=== PATIENT | male | born 1945 | race Caucasian/White ===

== ENCOUNTER → 2017-03-14 | Outpatient (CLI) | payer MEDICARE, BC ==
[~2017-03-14] MED LIST: ASPI1TAB PO; ASPI81TA85 PO; ATEN25TA PO; CIPR500S PO; COZA100T2 PO; CRES10TA32 PO; LUPR7.5I2 IM; PERC5TAB12 PO; PREV1CAP PO
--- NOTE | 2017-03-14 10:22 | REP ---
Radionuclide biliary scan and gallbladder ejection fraction: Radionuclide biliary scan: Imaging is performed of 5-minute intervals after intravenous injection of mebrofenin radiolabeled with 6.6 mCi of technetium 99m. There is common duct and gallbladder radial labeling at 10 minutes. There is hepatic washout. However, there is no biliary to bowel radial labeling during the 60 minutes of imaging. The radiotracer is sequestered in the gallbladder. Gallbladder ejection fraction: Additional imaging is performed at 2-minute intervals for 60 minutes after having the patient ingest a ounces of Ensure Enlive. There is biliary to bowel radial labeling at 3-4 minutes. The gallbladder ejection fraction is 67%. Normal ejection fraction is a value greater than 35%. Impression: There is no evidence of cystic duct obstruction. There is no evidence of common biliary duct obstruction. There is a normal gallbladder ejection fraction. Signed by Bradley Willett MD 03/14/2017 10:14 A
== END ==
LOC: M RAD 07:32
PROVIDERS: ATTEND Surgery
DX: R10.9 Unspecified abdominal pain (principal)
CPT/HCPCS: 78227; A9537; J2805

== ENCOUNTER 2018-07-10 09:43 | Day surgery (SDC) | payer MEDICARE, BC ==
[~2018-07-10] VITALS: Ht 175.3 cm; Wt 94.8 kg
[~2018-07-10 09:43] MED LIST changes: +AMLO5TAB6 PO; +PROP60TA14 PO
[2018-07-10] MEDS ORDERED: PROPOFOL 500 MG/50 ML VIAL As Ordered ONE (10:35)
[2018-07-10] MEDS ORDERED: LIDOCAINE 2% INJ 100 MG/5 ML SDV (FOR ANES.) As Ordered ONE (10:44)
[2018-07-10] MEDS ORDERED: NS 1,000 ML IV ONE (12:00)
--- NOTE | 2018-07-10 13:13 | ROOR ---
Patient Name: Bhavin Carlson Procedure Date: 07/10/2018 12:51 PM Date of : 1945 Age: 72 Room: [facility] Gender: Male Note Status: Finalized Procedure: Upper GI endoscopy Indications: Dyspepsia, Heartburn Providers: Дмитрий CARROLL MD Referring MD: CHRISTINA GRIJALVA MD Requesting Provider: Medicines: Monitored Anesthesia Care Complications: No immediate complications. Procedure: Pre-Anesthesia Assessment: - The heart rate, respiratory rate, oxygen saturations, blood pressure, adequacy of pulmonary ventilation, and response to care were monitored throughout the procedure. The Endoscope was introduced through the mouth, and advanced to the second part of duodenum. The upper GI endoscopy was accomplished without difficulty. The patient tolerated the procedure well. Findings: Small Hiatal Hernia. The esophagus was normal. The stomach was normal. The examined duodenum was normal. Impression: - Small Hiatal Hernia. - Normal esophagus. - Normal stomach. - Normal examined duodenum. - No specimens collected. Recommendation: - Observe patient's clinical course. - Follow an antireflux regimen. - Continue present medications. Дмитрий Carroll MD Дмитрий CARROLL MD 07/10/2018 1:13:33 PM This report has been signed electronically. Number of Addenda: 0 Note Initiated On: 07/10/2018 12:51 PM Estimated Blood Loss: Estimated blood loss: none.
--- NOTE | 2018-07-10 13:30 | ROOR ---
Patient Name: Bhavin Carlson Procedure Date: 07/10/2018 12:52 PM Date of : 1945 Age: 72 Room: [facility] Gender: Male Note Status: Finalized Procedure: Colonoscopy Indications: High risk colon cancer surveillance: Personal history of colonic polyps, Last colonoscopy: September 2015 Providers: Дмитрий CARROLL MD Referring MD: CHRISTINA GRIJALVA MD Requesting Provider: Medicines: Monitored Anesthesia Care Complications: No immediate complications. Procedure: Pre-Anesthesia Assessment: - The heart rate, respiratory rate, oxygen saturations, blood pressure, adequacy of pulmonary ventilation, and response to care were monitored throughout the procedure. The Colonoscope was introduced through the anus and advanced to the cecum, identified by appendiceal orifice and ileocecal valve. The colonoscopy was performed without difficulty. The patient tolerated the procedure well. The quality of the bowel preparation was good. Findings: The perianal and digital rectal examinations were normal. Three sessile polyps were found in the ascending colon and cecum. The polyps were 4 to 6 mm in size. These polyps were removed with a cold snare. Resection and retrieval were complete. Internal hemorrhoids were found during retroflexion. The hemorrhoids were moderate. The exam was otherwise without abnormality on direct and retroflexion views. Impression: - Three 4 to 6 mm polyps in the ascending colon and in the cecum, removed with a cold snare. Resected and retrieved. - Internal hemorrhoids. - The examination was otherwise normal on direct and retroflexion views. Recommendation: - Repeat colonoscopy in 5 years for surveillance. Дмитрий Carroll MD Дмитрий CARROLL MD 07/10/2018 1:29:56 PM This report has been signed electronically. Number of Addenda: 0 Note Initiated On: 07/10/2018 12:52 PM Estimated Blood Loss: Estimated blood loss: none.
[2018-07-10 13:45] VITALS: BP 132/97
== END 2018-07-10 14:03 | disposition home or self-care (01) ==
LOC: M OPP 09:43
PROVIDERS: ATTEND Internal Medicine Gastroenterology
DX: Z12.11 Encounter for screening for malignant neoplasm of colon (principal); Z86.010 Personal history of colon polyps; D12.2 Benign neoplasm of ascending colon; D12.0 Benign neoplasm of cecum; K64.8 Other hemorrhoids; R10.13 Epigastric pain; I10 Essential (primary) hypertension; Z79.82 Long term (current) use of aspirin; Z79.899 Other long term (current) drug therapy; Z95.1 Presence of aortocoronary bypass graft; Z95.5 Presence of coronary angioplasty implant and graft; Z85.46 Personal history of malignant neoplasm of prostate

== ENCOUNTER → 2019-12-24 | Outpatient (REF) | payer MEDICARE, BC ==
[~2019-12-24] MED LIST changes: +AMLO1TAB24 PO; -AMLO5TAB6 PO; -ASPI1TAB PO; +ASPI81TA26 PO; -ASPI81TA85 PO; +ASPI81TA86 PO; +CRES10TA PO; -CRES10TA32 PO
[2020-01-20 13:55] LABS: APPEARANCE, URINE CLEAR (CLEAR); BACTERIA, URINE AUTO NEGATIVE (NEGATIVE); BILIRUBIN, URINE AUTO NEGATIVE (NEGATIVE); BLOOD, URINE BLOOD NEGATIVE (NEGATIVE); COLOR, URINE YELLOW (YELLOW); GLUCOSE, URINE (UA) AUTO NEGATIVE (NEGATIVE); KETONE, URINE AUTO NEGATIVE (NEGATIVE); LEUKOCYTE ESTERASE, URINE AUTO NEGATIVE (NEGATIVE); MUCUS, URINE SMALL (NEGATIVE); NITRITE, URINE AUTO NEGATIVE (NEGATIVE); PROTEIN, URINE AUTO NEGATIVE (NEGATIVE); RBC, URINE AUTO 3 /HPF (0-3); SPECIFIC GRAVITY URINE AUTO 1.019 (1.002-1.035); SQUAMOUS EPITHELIAL CELL UR AU 0 /HPF (0-6); TRANSITIONAL EPITHELIAL AUTO <1 /HPF; UROBILINOGEN, URINE AUTO 0.2 mg/dL (0.0-2.0); WBC, URINE AUTO 0 /HPF (0-3)
== END ==
LOC: M SMT 08:05
PROVIDERS: ATTEND Nurse Practitioner Family
DX: R31.9 Hematuria, unspecified (principal)
CPT/HCPCS: 81000; 81001; G0463

== ENCOUNTER 2020-04-05 07:42 | Emergency (ER) | payer MEDICARE, BC ==
[~2020-04-05] VITALS: Ht 172.7 cm; Wt 92.2 kg
[2020-04-05] MEDS ORDERED: CILO100T PO (07:53)
[2020-04-05] MEDS ORDERED: BUSP10TA PO (07:53)
[2020-04-05] MEDS ORDERED: CLOP75TA2 PO (07:53)
[2020-04-05] MEDS ORDERED: RANO500T7 PO (07:53)
[2020-04-05 08:52] LABS: BASO % 0.3 % (0.0-1.0); EOS # 0.1 10^3/uL (0.0-0.5); EOS % 0.7 % (0.0-3.0); HEMATOCRIT 42.3 % (42.0-52.0); HEMOGLOBIN 13.1 g/dl (13.5-17.5); LYMPH # 1.9 10^3/uL (1.5-5.0); MEAN CORPUSCULAR HEMOGLOBIN 27.1 pg (27.0-33.0); MEAN CORPUSCULAR VOLUME 87.4 fl (80.0-96.0); MONO # 0.4 10^3/uL (0.0-0.8); MONO % 6.3 % (0.0-5.0); NEUTROPHILS # 4.4 10^3/uL (1.5-8.5); NEUTROPHILS % 64.6 % (36.0-66.0); PLATELET COUNT, AUTOMATED 298 10^3/uL (150-450); RED BLOOD COUNT 4.84 10^6/uL (4.30-6.10); WHITE BLOOD COUNT 6.8 10^3/uL (4.0-10.0)
--- NOTE | 2020-04-05 09:11 | REP ---
INDICATION: feeling of pressure to bladder. COMPARISON: None TECHNIQUE: Trans vesicle ultrasonography with pre and postvoid urinary bladder volume calculations. FINDINGS: There are no gross masses. The pre void urinary bladder volume calculation is 161 cc and the postvoid urinary bladder volume calculation is 0 cc. IMPRESSION: No abnormalities noted. <Electronically signed by Eliseo Blum > 04/05/20 [id number]
[2020-04-05 09:42] LABS: ALBUMIN 3.9 GM/DL (3.2-5.2); ALT/SGPT 18 U/L (12-78); BILIRUBIN,DIRECT < 0.1 MG/DL (0.0-0.2); BILIRUBIN,TOTAL 0.5 MG/DL (0.2-1.0); BLOOD UREA NITROGEN 13 MG/DL (7-18); CALCIUM LEVEL 8.9 MG/DL (8.8-10.2); CARBON DIOXIDE LEVEL 31 MEQ/L (21-32); CHLORIDE LEVEL 100 MEQ/L (98-107); GLOMERULAR FILTRATION RATE > 60.0 (>42); GLUCOSE, FASTING 113 MG/DL (70-100); LIPASE 109 U/L (73-393); POTASSIUM SERUM 3.8 MEQ/L (3.5-5.1); SODIUM LEVEL 138 MEQ/L (136-145); TOTAL PROTEIN 7.8 GM/DL (6.4-8.2)
[2020-04-05] MEDS ORDERED: ISOVUE-370 76% 100ML VIAL As Ordered ONE (09:59)
--- NOTE | 2020-04-05 10:44 | REP ---
INDICATION: lower abd pain r/o infectious process. COMPARISON: None TECHNIQUE: 100 cc Isovue 370. FINDINGS: The lung bases are clear. Seen in the lateral segment of the left lobe of the liver there is a 1.6 cm sized enhancing focus. Arising from the tip of the posterior segment of the right lobe there is a 9 mm sized cyst. The gallbladder, spleen, pancreas, and adrenal glands are within normal limits. In the inferior pole of the right kidney there is a 1.1 cm sized low-density structure which has water density Hounsfield unit readings. Seen in the left kidney there are 6 smoothly marginated low-density structures the largest measures 6.4 cm and all but 1 having water density Hounsfield unit readings. The single low-density structure that has slightly higher than water density Hounsfield unit reading is seen arising from the inferior pole and measures 1.4 cm. This likely represents a slightly hyperdense cyst. No tanya abnormal nodular enhancement or septations are identified. The abdominal aorta and para-aortic regions are within normal limits. Limited evaluation of the bowel loops and the mesenteries show no gross abnormalities. There are a few sigmoid colon diverticula. There is no free fluid or free air. There is no evidence of a mass or adenopathy. Postoperative changes are seen likely involving the midline anterior abdominal wall and likely secondary to previous appendectomy. Surgical clips are seen in the left inguinal region likely secondary to previous herniorrhaphy. Bone window technique throughout the examination shows age-related changes. IMPRESSION: 1. Bilateral renal cysts. 2. Postoperative changes as described above. 3. Focal area of enhancement seen in the lateral segment of the left lobe of the liver, as described above, and likely representing a small vascular anomaly. Consider further evaluation with MRI if clinically relevant. 4. There is no evidence of acute intra-abdominal or intrapelvic disease. 1. <Electronically signed by Eliseo Blum > 04/05/20 [id number]
[2020-04-05 11:13] VITALS: BP 122/83
--- NOTE | 2020-04-06 11:03 | ED PDOC ---
Post-Departure Follow-Up [facility] faxed formal report of ct abd/p for fu Maru Escalante MD Apr 06, 2020 11:03
== END 2020-04-05 11:16 | disposition home or self-care (01) ==
LOC: M ED 07:42
DX: R10.32 Left lower quadrant pain (principal); I11.9 Hypertensive heart disease without heart failure; E78.5 Hyperlipidemia, unspecified; Z79.899 Other long term (current) drug therapy
CPT/HCPCS: 36415; 74177; 76857; 80048; 80076; 81001; 83690; 85025; 99284; Q9967

== ENCOUNTER → 2020-04-25 | Outpatient (CLI) | payer MEDICARE, BC ==
[~2020-04-25] MED LIST changes: +BUSP10TA PO; +CILO100T PO; +CLOP75TA2 PO; +LOSA25TA14; +MAGN400T2 PO; +POTA10CA32; +RANO500T7 PO
== END ==
LOC: M LABSMTC 09:25
PROVIDERS: ATTEND Anesthesiology
DX: Z01.812 Encounter for preprocedural laboratory examination (principal); Z20.828 Contact with and (suspected) exposure to other viral communicable diseases

== ENCOUNTER 2020-04-30 09:00 | Day surgery (SDC) | payer MEDICARE, BC ==
[~2020-04-30] VITALS: Ht 172.7 cm; Wt 93.0 kg
[~2020-04-30 09:00] MED LIST changes: +CEFUROXIME 1MG/0.1ML INTRACAMERAL INJ As Ordered ONE; +DUOVISC (0.50ML VISCOAT/0.55ML PROVISC) OPHTH KIT As Ordered ONE; +OFLOXACIN 0.3 % (OCUFLOX) OPTH SOL 5ML OS ONE; +PHENYLEPHRINE 2.5% OPHTH SOL 2ML OS ONE; +POVIDONE-IODINE 5% OPHTH PREP SOL 30ML As Ordered ONE; +PROPARACAINE 0.5% OPHTH SOL 15ML OS ONE; +TROPICAMIDE 1% OPHTH SOLN 2ML OS ONE
[2020-04-30] MEDS ORDERED: BSS IRR 500ML/OMIDRIA 4ML IRR BAG (OR ONLY) As Ordered ONE (09:48)
[2020-04-30] MEDS ORDERED: MIDAZOLAM INJ 2MG/2ML VIAL (J2250 PER 1MG) As Ordered ONE (11:15)
[2020-04-30] MEDS ORDERED: fentaNYL 250 MCG/5 ML INJECTION (J3010) As Ordered ONE (11:15)
[2020-04-30] MEDS ORDERED: propofoL 200 MG/20 ML VIAL As Ordered ONE (11:15)
[2020-04-30 11:45] VITALS: BP 105/72
== END 2020-04-30 12:00 | disposition home or self-care (01) ==
LOC: M SDC 09:00
PROVIDERS: ATTEND Ophthalmology
DX: H25.12 Age-related nuclear cataract, left eye (principal); I25.10 Atherosclerotic heart disease of native coronary artery without angina pectoris; I10 Essential (primary) hypertension; E78.00 Pure hypercholesterolemia, unspecified; Z95.1 Presence of aortocoronary bypass graft; Z98.61 Coronary angioplasty status; K21.9 Gastro-esophageal reflux disease without esophagitis; K44.9 Diaphragmatic hernia without obstruction or gangrene; Z85.46 Personal history of malignant neoplasm of prostate; F41.9 Anxiety disorder, unspecified; Z79.899 Other long term (current) drug therapy
CPT/HCPCS: 66984; J1097; J2250; J3010; V2632

== ENCOUNTER → 2020-05-23 | Outpatient (CLI) | payer MEDICARE, BC ==
[~2020-05-23] MED LIST changes: -CEFUROXIME 1MG/0.1ML INTRACAMERAL INJ As Ordered ONE; -DUOVISC (0.50ML VISCOAT/0.55ML PROVISC) OPHTH KIT As Ordered ONE; -LOSA25TA14; +LOSA25TA14 PO; -OFLOXACIN 0.3 % (OCUFLOX) OPTH SOL 5ML OS ONE; -PHENYLEPHRINE 2.5% OPHTH SOL 2ML OS ONE; -POVIDONE-IODINE 5% OPHTH PREP SOL 30ML As Ordered ONE; -PROPARACAINE 0.5% OPHTH SOL 15ML OS ONE; -TROPICAMIDE 1% OPHTH SOLN 2ML OS ONE
== END ==
LOC: M LABSMTC 10:10
PROVIDERS: ATTEND Anesthesiology
DX: Z01.812 Encounter for preprocedural laboratory examination (principal); Z20.828 Contact with and (suspected) exposure to other viral communicable diseases

== ENCOUNTER 2020-05-28 08:23 | Day surgery (SDC) | payer MEDICARE, BC ==
[~2020-05-28] VITALS: Ht 172.7 cm; Wt 93.0 kg
[~2020-05-28 08:23] MED LIST changes: +BSS IRR 500ML/OMIDRIA 4ML IRR BAG (OR ONLY) As Ordered ONE; +CEFUROXIME 1MG/0.1ML INTRACAMERAL INJ As Ordered ONE; +DUOVISC (0.50ML VISCOAT/0.55ML PROVISC) OPHTH KIT As Ordered ONE; +OFLOXACIN 0.3 % (OCUFLOX) OPTH SOL 5ML OD ONE; +PHENYLEPHRINE 2.5% OPHTH SOL 2ML OD ONE; +POVIDONE-IODINE 5% OPHTH PREP SOL 30ML As Ordered ONE; +PROPARACAINE 0.5% OPHTH SOL 15ML OD ONE; +TROPICAMIDE 1% OPHTH SOLN 2ML OD ONE
[2020-05-28] MEDS ORDERED: MIDAZOLAM INJ 2MG/2ML VIAL (J2250 PER 1MG) As Ordered ONE (08:24)
[2020-05-28] MEDS ORDERED: fentaNYL 100 MCG/2 ML INJECTION (J3010) As Ordered ONE (08:24)
[2020-05-28] MEDS ORDERED: AMOX500T (09:50)
[2020-05-28 12:00] VITALS: BP 122/57
--- NOTE | 2020-05-29 08:47 | RO ---
OPERATIVE NOTE DATE OF OPERATION: 05/28/2020 PREOPERATIVE DIAGNOSIS: 1. Visually significant nuclear sclerotic cataract, right eye. POSTOPERATIVE DIAGNOSIS: 1. Visually significant nuclear sclerotic cataract, right eye. PROCEDURE: 1. Cataract extraction with use of phacoemulsification, and placement of intraocular lens, AU00T0 19.5, right eye. SURGEON: Bebeto Hernandez DO ANESTHESIA: Local (Omidria with MAC) COMPLICATIONS: None POSTOPERATIVE CONDITION: Stable INDICATIONS FOR SURGERY: 1. Blurred vision affecting patient's activities of daily living. DESCRIPTION OF PROCEDURE: The patient was seen in the preoperative area and properly identified. The correct operative eye was identified and marked. The patient received topical anesthetic, antibiotics, and topical dilating drops. The patient was then transferred to the operating room. The correct side was re-identified and a time-out was performed. The eye was prepped and draped in a sterile fashion. The eyelids were isolated with Tegaderm tape and the lids were held open with an adjustable speculum. A 1.0mm paracentesis incision was made. Omidria was then injected into the anterior chamber. Viscoelastic was then injected into the anterior chamber through the paracentesis. Using a 2.4mm sharp-tipped keratome, the anterior chamber was entered via a temporal clear cornea incision. A continuous curvilinear capsulorrhexis was created with Utrata forceps. Hydrodissection was performed with BSS on a blunt cannula until the nucleus was able to rotate freely. The crystalline lens was phacoemulsified and aspirated. Irrigation/aspiration was used to remove the cortical material Cohesive viscoelastic was placed into the capsular bag to deepen it. The implant was placed into the capsular bag and allowed to unfold. Placement was confirmed by visualizing the anterior capsulorrhexis. Irrigation/aspiration was used to remove the viscoelastic. The clear corneal incision was hydrated with BSS on a blunt cannula. The lens was well positioned. Intracameral antibiotic was injected into the anterior chamber. The incisions were then tested for leaks and found to be negative. The eye was then palpated for appropriate pressure and adjusted accordingly with BSS. The eyelid speculum was then carefully removed. A shield was placed over the eye. The patient tolerated the procedure well and was discharge to the recovery unit in a stable condition. JIA
== END 2020-05-28 12:07 | disposition home or self-care (01) ==
LOC: M SDC 08:23
PROVIDERS: ATTEND Ophthalmology
DX: H25.11 Age-related nuclear cataract, right eye (principal); I10 Essential (primary) hypertension; I25.10 Atherosclerotic heart disease of native coronary artery without angina pectoris; K21.9 Gastro-esophageal reflux disease without esophagitis; K44.9 Diaphragmatic hernia without obstruction or gangrene; E78.5 Hyperlipidemia, unspecified; N40.0 Benign prostatic hyperplasia without lower urinary tract symptoms; Z87.891 Personal history of nicotine dependence; Z79.01 Long term (current) use of anticoagulants; Z98.61 Coronary angioplasty status; Z79.899 Other long term (current) drug therapy
CPT/HCPCS: 66984; J1097; J2250; J3010; V2632

== ENCOUNTER → 2020-10-29 | Outpatient (CLI) | payer MEDICARE, BC ==
[~2020-10-29] MED LIST changes: +AMOX500T; -BSS IRR 500ML/OMIDRIA 4ML IRR BAG (OR ONLY) As Ordered ONE; -CEFUROXIME 1MG/0.1ML INTRACAMERAL INJ As Ordered ONE; -DUOVISC (0.50ML VISCOAT/0.55ML PROVISC) OPHTH KIT As Ordered ONE; -OFLOXACIN 0.3 % (OCUFLOX) OPTH SOL 5ML OD ONE; -PHENYLEPHRINE 2.5% OPHTH SOL 2ML OD ONE; -POVIDONE-IODINE 5% OPHTH PREP SOL 30ML As Ordered ONE; -PROPARACAINE 0.5% OPHTH SOL 15ML OD ONE; -TROPICAMIDE 1% OPHTH SOLN 2ML OD ONE
== END ==
LOC: M LABSMTC 09:36
PROVIDERS: ATTEND Anesthesiology
DX: Z01.812 Encounter for preprocedural laboratory examination (principal)

== ENCOUNTER 2020-11-03 07:17 | Day surgery (SDC) | payer MEDICARE, BC ==
[~2020-11-03] VITALS: Ht 167.6 cm; Wt 90.7 kg
[~2020-11-03 07:17] MED LIST changes: +LR 1,000 ML IV ONE; -POTA10CA32; +POTA10CA32 PO; +ceFAZolin SOD 2 GM in IV 1 EA IV ONE
[2020-11-03] MEDS ORDERED: BUPIVACAINE/EPIN 0.25% 30 ML VIAL As Ordered ONE (10:14)
[2020-11-03] MEDS ORDERED: fentaNYL 100 MCG/2 ML INJECTION (J3010) As Ordered ONE ×2 (10:21→12:18)
[2020-11-03] MEDS ORDERED: ONDANSETRON 4MG/2ML VIAL As Ordered ONE (10:21)
[2020-11-03] MEDS ORDERED: ROCURONIUM BROMIDE 50 MG/5 ML VIAL As Ordered ONE ×2 (10:21→11:45)
[2020-11-03] MEDS ORDERED: LIDOCAINE 2% 100MG/5ML SDV (FOR ANES.) As Ordered ONE (10:21)
[2020-11-03] MEDS ORDERED: propofoL 200 MG/20 ML VIAL As Ordered ONE (10:21)
[2020-11-03] MEDS ORDERED: dexameTHASONE 4 MG/ML 1ML VIAL (J1100 PER 1MG) As Ordered ONE (10:21)
[2020-11-03] MEDS ORDERED: MIDAZOLAM INJ 2MG/2ML VIAL (J2250 PER 1MG) As Ordered ONE (10:36)
[2020-11-03] MEDS ORDERED: ePHEDrine SULFATE 25 MG/5 ML(5MG/ML) SYRINGE As Ordered ONE (11:20)
[2020-11-03] MEDS ORDERED: ACETAMINOPHEN 1000MG 100ML IV BTL (OFIRMEV) (J0131 PER 10MG) As Ordered ONE (11:29)
[2020-11-03] MEDS ORDERED: SUGAMMADEX SODIUM 500 MG/5 ML VIAL (BRIDION) As Ordered ONE (11:55)
[2020-11-03] MEDS ORDERED: fentaNYL 100 MCG/2 ML INJECTION (J3010) IV PRN (12:45)
[2020-11-03] MEDS ORDERED: traMADol 50 MG TAB PO PRN (12:45)
[2020-11-03] MEDS ORDERED: METOCLOPRAMIDE INJ 10MG/2ML VIAL (J2765 PER 1) IV PRN (12:45)
[2020-11-03] MEDS ORDERED: PERCOCET 5MG/325MG TAB PO PRN (12:45)
[2020-11-03] MEDS ORDERED: NS 1,000 ML IV SCH (12:45)
[2020-11-03] MEDS ORDERED: ONDANSETRON 4MG/2ML VIAL IV PRN (12:45)
[2020-11-03] MEDS ORDERED: LR 1,000 ML IV SCH (12:45)
[2020-11-03 14:30] VITALS: BP 120/65
== END 2020-11-03 14:35 | disposition home or self-care (01) ==
LOC: M SDC 07:17
PROVIDERS: ATTEND Surgery
DX: K80.10 Calculus of gallbladder with chronic cholecystitis without obstruction (principal); E78.5 Hyperlipidemia, unspecified; I10 Essential (primary) hypertension; I25.10 Atherosclerotic heart disease of native coronary artery without angina pectoris; Z98.61 Coronary angioplasty status; Z95.1 Presence of aortocoronary bypass graft; K21.9 Gastro-esophageal reflux disease without esophagitis; K44.9 Diaphragmatic hernia without obstruction or gangrene; Z85.46 Personal history of malignant neoplasm of prostate; Z79.899 Other long term (current) drug therapy; Z79.02 Long term (current) use of antithrombotics/antiplatelets
CPT/HCPCS: 47562; 88304; J0131; J0690; J1100; J2250; J2405; J2765; J3010

== ENCOUNTER 2021-10-24 15:43 | Inpatient (IN) | payer MEDICARE, BC ==
[~2021-10-24] VITALS: Ht 172.7 cm; Wt 90.5 kg
[~2021-10-24 15:43] MED LIST changes: +LOSA25TA13 PO; -LOSA25TA14 PO; -LR 1,000 ML IV ONE; -ceFAZolin SOD 2 GM in IV 1 EA IV ONE
[2021-10-24 16:58] VITALS: BP 127/72
[2021-10-24] MEDS ORDERED: ONDANSETRON 4MG/2ML VIAL IV PRN (17:45)
[2021-10-24] MEDS: D5W/0.45% SODIUM CHLORIDE 1,000 ML IV SCH (18:11)
[2021-10-24 19:27] LABS: BASO % 0.2 % (0.0-1.0); EOS # 0.1 10^3/uL (0.0-0.5); EOS % 2.2 % (0.0-3.0); HEMATOCRIT 41.7 % (42.0-52.0); HEMOGLOBIN 13.3 g/dl (13.5-17.5); LYMPH # 2.1 10^3/uL (1.5-5.0); MEAN CORPUSCULAR HEMOGLOBIN 28.5 pg (27.0-33.0); MEAN CORPUSCULAR HGB CONC 31.9 g/dl (32.0-36.5); MEAN CORPUSCULAR VOLUME 89.3 fl (80.0-96.0); MONO # 0.7 10^3/uL (0.0-0.8); MONO % 10.9 % (2.0-8.0); NEUTROPHILS # 3.4 10^3/uL (1.5-8.5); NEUTROPHILS % 53.5 % (36.0-66.0); PLATELET COUNT, AUTOMATED 220 10^3/uL (150-450); RED BLOOD COUNT 4.67 10^6/uL (4.30-6.10); WHITE BLOOD COUNT 6.3 10^3/uL (4.0-10.0)
[2021-10-24] MEDS ORDERED: PROP60CA PO (19:40)
[2021-10-24] MEDS ORDERED: FAMO40TA3 PO (19:40)
[2021-10-24] MEDS ORDERED: ROSU5TAB5 PO (19:44)
[2021-10-24] MEDS ORDERED: RANO500T7 PO (19:44)
[2021-10-24] MEDS ORDERED: HOME MED LIST COMPLETE! XX SCH (19:50)
[2021-10-24 19:53] LABS: INR 1.05; PROTHROMBIN TIME 14.1 SECONDS (12.7-14.5)
[2021-10-24 19:55] LABS: ALBUMIN 3.3 GM/DL (3.2-5.2); ALT/SGPT 14 U/L (12-78); BILIRUBIN,TOTAL 0.6 MG/DL (0.2-1.0); BLOOD UREA NITROGEN 14 MG/DL (7-18); CALCIUM LEVEL 8.4 MG/DL (8.8-10.2); CARBON DIOXIDE LEVEL 26 MEQ/L (21-32); CHLORIDE LEVEL 109 MEQ/L (98-107); CREATININE FOR GFR 0.86 MG/DL (0.70-1.30); GLOMERULAR FILTRATION RATE > 60.0 (>42); GLUCOSE, FASTING 125 MG/DL (70-100); LIPASE 609 U/L (73-393); POTASSIUM SERUM 3.5 MEQ/L (3.5-5.1); SODIUM LEVEL 141 MEQ/L (136-145); TOTAL PROTEIN 7.1 GM/DL (6.4-8.2)
[2021-10-24 20:17] VITALS: BP 111/70
[2021-10-24] MEDS: PANTOPRAZOLE 40MG VIAL IV SCH (20:20)
[2021-10-24] MEDS ORDERED: PILL CUTTER 1 EACH XX PRN (22:15)
[2021-10-24 22:33] VITALS: BP 120/64
[2021-10-24] MEDS: PROPRANOLOL 60 MG LA CAP PO SCH (22:35)
[2021-10-24] MEDS: CILOSTAZOL 100 MG TAB (PLETAL) PO SCH (23:04)
[2021-10-24] MEDS: ROSUVASTATIN 10 MG TAB (CRESTOR) PO SCH (23:04)
[2021-10-24] MEDS: RANOLAZINE 500 MG ER TAB PO SCH (23:04)
[2021-10-24] MEDS: amLODIPine 5 MG TAB PO SCH (23:04)
[2021-10-24] MEDS: FAMOTIDINE 20 MG TAB PO SCH (23:04)
[2021-10-25] VITALS (8 sets, daily range): BP systolic 101–118; BP diastolic 57–73
[2021-10-25] MEDS ORDERED: UNRESOLVED CLARIFICATION ENTRY XX SCH (00:01)
[2021-10-25] MEDS: D5W/0.45% SODIUM CHLORIDE 1,000 ML IV SCH (04:12)
[2021-10-25] MEDS: DICYCLOMINE 10 MG CAP PO PRN ×2 (04:42→18:06)
[2021-10-25] MEDS: ACETAMINOPHEN TAB 650MG DOSE (2X325MG) PO PRN ×2 (04:48→18:06)
[2021-10-25 07:17] LABS: BASO % 0.2 % (0.0-1.0); EOS # 0.1 10^3/uL (0.0-0.5); EOS % 2.2 % (0.0-3.0); HEMATOCRIT 36.8 % (42.0-52.0); HEMOGLOBIN 11.9 g/dl (13.5-17.5); LYMPH # 1.7 10^3/uL (1.5-5.0); LYMPH % 30.4 % (24.0-44.0); MEAN CORPUSCULAR HEMOGLOBIN 29.3 pg (27.0-33.0); MEAN CORPUSCULAR HGB CONC 32.3 g/dl (32.0-36.5); MEAN CORPUSCULAR VOLUME 90.6 fl (80.0-96.0); MONO # 0.7 10^3/uL (0.0-0.8); NEUTROPHILS % 53.8 % (36.0-66.0); PLATELET COUNT, AUTOMATED 204 10^3/uL (150-450); RED BLOOD COUNT 4.06 10^6/uL (4.30-6.10); WHITE BLOOD COUNT 5.5 10^3/uL (4.0-10.0)
[2021-10-25 07:36] LABS: ALBUMIN 2.9 GM/DL (3.2-5.2); ALT/SGPT 13 U/L (12-78); BILIRUBIN,TOTAL 0.4 MG/DL (0.2-1.0); BLOOD UREA NITROGEN 9 MG/DL (7-18); CALCIUM LEVEL 8.4 MG/DL (8.8-10.2); CARBON DIOXIDE LEVEL 27 MEQ/L (21-32); CHLORIDE LEVEL 109 MEQ/L (98-107); CREATININE FOR GFR 0.85 MG/DL (0.70-1.30); GLOMERULAR FILTRATION RATE > 60.0 (>42); GLUCOSE, FASTING 105 MG/DL (70-100); MAGNESIUM LEVEL 1.9 MG/DL (1.8-2.4); POTASSIUM SERUM 3.4 MEQ/L (3.5-5.1); SODIUM LEVEL 141 MEQ/L (136-145); TOTAL PROTEIN 6.8 GM/DL (6.4-8.2)
[2021-10-25 08:35] LABS: LIPASE 109 U/L (73-393)
[2021-10-25] MEDS: CILOSTAZOL 100 MG TAB (PLETAL) PO SCH ×2 (09:01→19:53)
[2021-10-25] MEDS: LOSARTAN 25 MG TAB PO SCH (09:01)
[2021-10-25] MEDS: MAGNESIUM OXIDE 400MG TAB (MAG-OX) PO SCH (09:02)
[2021-10-25] MEDS: CLOPIDOGREL 75 MG TAB PO SCH (09:02)
[2021-10-25] MEDS: ENOXAPARIN 40MG/0.4ML SYRINGE (J1650 PER 10MG) SC SCH (09:03)
[2021-10-25] MEDS: KCL 10MEQ/100ML SWI (KRUN) 10 MEQ in IV 1 EA IV SCH ×2 (09:03→10:15)
[2021-10-25] MEDS: PANTOPRAZOLE 40MG VIAL IV SCH ×2 (09:03→19:54)
[2021-10-25] MEDS: ROSUVASTATIN 10 MG TAB (CRESTOR) PO SCH (19:52)
[2021-10-25] MEDS: amLODIPine 5 MG TAB PO SCH (19:53)
[2021-10-25] MEDS: PROPRANOLOL 60 MG LA CAP PO SCH (19:53)
[2021-10-25] MEDS: FAMOTIDINE 20 MG TAB PO SCH (19:53)
[2021-10-25] MEDS: RANOLAZINE 500 MG ER TAB PO SCH (19:54)
[2021-10-26 05:28] VITALS: BP 108/67
[2021-10-26 06:48] LABS: BASO % 0.2 % (0.0-1.0); EOS # 0.1 10^3/uL (0.0-0.5); EOS % 1.5 % (0.0-3.0); HEMATOCRIT 38.4 % (42.0-52.0); HEMOGLOBIN 12.6 g/dl (13.5-17.5); LYMPH % 30.2 % (24.0-44.0); MEAN CORPUSCULAR HEMOGLOBIN 29.6 pg (27.0-33.0); MEAN CORPUSCULAR HGB CONC 32.8 g/dl (32.0-36.5); MEAN CORPUSCULAR VOLUME 90.1 fl (80.0-96.0); MONO # 0.6 10^3/uL (0.0-0.8); NEUTROPHILS # 3.8 10^3/uL (1.5-8.5); NEUTROPHILS % 58.8 % (36.0-66.0); PLATELET COUNT, AUTOMATED 225 10^3/uL (150-450); RED BLOOD COUNT 4.26 10^6/uL (4.30-6.10); WHITE BLOOD COUNT 6.5 10^3/uL (4.0-10.0)
[2021-10-26 07:15] LABS: ALBUMIN 3.2 GM/DL (3.2-5.2); ALT/SGPT 13 U/L (12-78); BILIRUBIN,TOTAL 0.3 MG/DL (0.2-1.0); BLOOD UREA NITROGEN 8 MG/DL (7-18); CALCIUM LEVEL 8.4 MG/DL (8.8-10.2); CARBON DIOXIDE LEVEL 28 MEQ/L (21-32); CHLORIDE LEVEL 106 MEQ/L (98-107); CREATININE FOR GFR 0.91 MG/DL (0.70-1.30); GLOMERULAR FILTRATION RATE > 60.0 (>42); GLUCOSE, FASTING 102 MG/DL (70-100); MAGNESIUM LEVEL 1.7 MG/DL (1.8-2.4); POTASSIUM SERUM 3.7 MEQ/L (3.5-5.1); SODIUM LEVEL 138 MEQ/L (136-145); TOTAL PROTEIN 6.9 GM/DL (6.4-8.2)
[2021-10-26 08:48] VITALS: BP 109/66
[2021-10-26] MEDS: LOSARTAN 25 MG TAB PO SCH (08:48)
[2021-10-26] MEDS: CLOPIDOGREL 75 MG TAB PO SCH ×3 (08:49→09:02)
[2021-10-26] MEDS: MAGNESIUM OXIDE 400MG TAB (MAG-OX) PO SCH (08:49)
[2021-10-26] MEDS: PANTOPRAZOLE 40MG VIAL IV SCH (08:49)
[2021-10-26] MEDS: ENOXAPARIN 40MG/0.4ML SYRINGE (J1650 PER 10MG) SC SCH ×2 (08:50→09:02)
[2021-10-26] MEDS: CILOSTAZOL 100 MG TAB (PLETAL) PO SCH (08:50)
[2021-10-26] MEDS: MAG SULF 1GM/100ML (MAG RUN) 1 GM in IV 1 EA IV SCH ×2 (10:06→11:21)
[2021-10-26] MEDS ORDERED: MIRALAX *UNIT DOSE* 17GM PACKET PO ONE (12:50)
[2021-10-26 14:00] VITALS: BP 130/75
[2021-10-26] MEDS ORDERED: ACET1TAB55 PO (14:36)
[2021-10-26] MEDS ORDERED: PANT40TA29 PO (14:36)
== END 2021-10-26 15:23 | disposition home or self-care (01) | DRG 392 ==
LOC: M PCU 16:50 → M MSPAV 10-25 22:19
PROVIDERS: ADMIT Internal Medicine; ATTEND Family Medicine
DX: K52.9 Noninfective gastroenteritis and colitis, unspecified (principal); I25.10 Atherosclerotic heart disease of native coronary artery without angina pectoris; Z95.5 Presence of coronary angioplasty implant and graft; I73.9 Peripheral vascular disease, unspecified; I10 Essential (primary) hypertension; E78.5 Hyperlipidemia, unspecified; F41.9 Anxiety disorder, unspecified; K21.9 Gastro-esophageal reflux disease without esophagitis; Z90.49 Acquired absence of other specified parts of digestive tract; Z98.41 Cataract extraction status, right eye; Z98.42 Cataract extraction status, left eye; Z79.899 Other long term (current) drug therapy; Z20.822 Contact with and (suspected) exposure to COVID-19; Z95.1 Presence of aortocoronary bypass graft

== ENCOUNTER → 2021-12-27 | Outpatient (CLI) | payer MEDICARE, BC ==
[~2021-12-27] MED LIST changes: +ACET1TAB55 PO; +FAMO40TA3 PO; +PANT40TA29 PO; +PROP60CA PO; +ROSU5TAB5 PO
== END ==
LOC: M LABSMTC 09:09
PROVIDERS: ATTEND Surgery Vascular Surgery
DX: Z01.818 Encounter for other preprocedural examination (principal); Z20.822 Contact with and (suspected) exposure to COVID-19

== ENCOUNTER → 2022-09-07 | Outpatient (CLI) | payer MEDICARE, BC ==
[~2022-09-07] MED LIST changes: -CILO100T PO; +CILO100T3 PO; -COZA100T2 PO; +COZA100T3 PO; +E-Z-GAS II EFFERVESCENT PACKET (SODIUM BICARB./CITRIC ACID/SIMETHICONE) As Ordered ONE; +E-Z-HD 98% w/w 340GM SUSP BTL As Ordered ONE; +E-Z-PAQUE 96% w/w SUSP 176GM BTL As Ordered ONE; -POTA10CA32 PO; +POTA10CA33 PO
== END ==
LOC: M RAD 08:26
PROVIDERS: ATTEND Surgery
DX: K56.690 Other partial intestinal obstruction (principal)

== ENCOUNTER 2023-10-30 08:08 | Day surgery (SDC) | payer MEDICARE, BC ==
[~2023-10-30] VITALS: Ht 172.7 cm; Wt 91.2 kg
[~2023-10-30 08:08] MED LIST changes: -COZA100T3 PO; -E-Z-GAS II EFFERVESCENT PACKET (SODIUM BICARB./CITRIC ACID/SIMETHICONE) As Ordered ONE; -E-Z-HD 98% w/w 340GM SUSP BTL As Ordered ONE; -E-Z-PAQUE 96% w/w SUSP 176GM BTL As Ordered ONE; +FLON27.5; +LOSA-530 PO; +MAGN400T33 PO; +MECL-86 PO; +NITR0.4S14; +NS 1,000 ML IV ONE; -POTA10CA33 PO; +POTA10CA70 PO; +POTA1TAB23 PO; +RANO500T2 PO; +ROSU5TAB40 PO; -ROSU5TAB5 PO
[2023-10-30] MEDS ORDERED: fentaNYL 100 MCG/2 ML INJECTION As Ordered ONE (09:31)
[2023-10-30] MEDS ORDERED: propofoL 500 MG/50 ML VIAL As Ordered ONE (09:40)
[2023-10-30] MEDS ORDERED: LIDOCAINE 2% 100MG/5ML SDV (FOR ANES.) As Ordered ONE (09:40)
[2023-10-30] MEDS ORDERED: ePHEDrine SULFATE 25 MG/5 ML(5MG/ML) SYRINGE As Ordered ONE (09:53)
[2023-10-30 10:01] VITALS: TEMP 97.1
[2023-10-30 10:31] VITALS: BP 115/74; O2SAT 94
== END 2023-10-30 10:32 | disposition home or self-care (01) ==
LOC: M OPP 08:08
PROVIDERS: ATTEND Internal Medicine Gastroenterology
DX: Z12.11 Encounter for screening for malignant neoplasm of colon (principal); Z86.010 Personal history of colon polyps; D12.2 Benign neoplasm of ascending colon; D12.5 Benign neoplasm of sigmoid colon; K57.30 Diverticulosis of large intestine without perforation or abscess without bleeding; K64.8 Other hemorrhoids; R12 Heartburn; I25.10 Atherosclerotic heart disease of native coronary artery without angina pectoris; I10 Essential (primary) hypertension; Z87.891 Personal history of nicotine dependence; Z95.5 Presence of coronary angioplasty implant and graft; Z79.02 Long term (current) use of antithrombotics/antiplatelets; Z79.899 Other long term (current) drug therapy
CPT/HCPCS: 43235; 45385; 88305; J3010

== ENCOUNTER → 2024-03-16 | Outpatient (CLI) | payer MEDICARE, BC ==
[~2024-03-16] MED LIST changes: +GABA-1172 PO; -NS 1,000 ML IV ONE; +SUCR1TAB56 PO; +TIZA10TA PO
[2024-03-16 12:31] LABS: HEMATOCRIT 43.1 % (42.0-52.0); MEAN CORPUSCULAR HGB CONC 32.5 g/dl (32.0-36.5); MEAN CORPUSCULAR VOLUME 92.3 fl (80.0-96.0); PLATELET COUNT, AUTOMATED 236 10^3/uL (150-450); RED BLOOD COUNT 4.67 10^6/uL (4.30-6.10); WHITE BLOOD COUNT 6.6 10^3/uL (4.0-10.0)
[2024-03-16 12:54] LABS: BLOOD UREA NITROGEN 18 MG/DL (9-23); CALCIUM LEVEL 9.6 MG/DL (8.3-10.6); CARBON DIOXIDE LEVEL 31 MMOL/L (20-31); CHLORIDE LEVEL 105 MMOL/L (98-107); CREATININE FOR GFR 1.05 MG/DL (0.70-1.30); GLOMERULAR FILTRATION RATE > 60.0 (>42); GLUCOSE, FASTING 105 MG/DL (74-106); POTASSIUM SERUM 4.4 MMOL/L (3.5-5.1); SODIUM LEVEL 139 MMOL/L (136-145)
[2024-03-16 12:58] LABS: FREE T4 1.11 NG/DL (0.89-1.76); THYROID STIMULATING HORMONE 1.004 uIU/ML (0.55-4.78)
== END ==
LOC: M RAD 11:17
PROVIDERS: ATTEND Physician Assistant
DX: C44.41 Basal cell carcinoma of skin of scalp and neck (principal); Z79.899 Other long term (current) drug therapy

== ENCOUNTER 2024-03-21 06:01 | Day surgery (SDC) | payer MEDICARE, BC ==
[~2024-03-21] VITALS: Ht 170.2 cm; Wt 90.4 kg
[2024-03-21] MEDS ORDERED: NS 1,000 ML IV SCH (06:30)
[2024-03-21] MEDS ORDERED: dexmedeTOMIDine (4MCG/ML)200MCG/50ML BTL (PRECEDEX) As Ordered ONE (07:24)
[2024-03-21] MEDS ORDERED: LIDOCAINE 2% 100MG/5ML SDV (FOR ANES.) As Ordered ONE (07:24)
[2024-03-21] MEDS ORDERED: ONDANSETRON 4MG 2ML VIAL As Ordered ONE (07:24)
[2024-03-21] MEDS ORDERED: propofoL 200 MG/20 ML VIAL As Ordered ONE (07:24)
[2024-03-21] MEDS ORDERED: fentaNYL 100 MCG/2 ML INJECTION As Ordered ONE (07:25)
[2024-03-21] MEDS ORDERED: MIDAZOLAM INJ 2MG/2ML VIAL As Ordered ONE (07:25)
[2024-03-21] MEDS: ceFAZolin SOD 2 GM in IV 1 EA IV ONE (07:55)
[2024-03-21] MEDS: POVIDONE-IODINE 5% OPHTH PREP SOL 30ML As Ordered ONE (08:05)
[2024-03-21] MEDS ORDERED: KETAMINE HCL 200MG/20ML VIAL As Ordered ONE (08:10)
[2024-03-21] MEDS ORDERED: ePHEDrine SULFATE 25 MG/5 ML(5MG/ML) SYRINGE As Ordered ONE (08:16)
[2024-03-21] MEDS: EPINEPHrine INJ 1 MG/ML 1ML AMP As Ordered ONE (08:16)
[2024-03-21] MEDS: LIDOCAINE 2% W/EPINEPHRINE 20ML VIAL **PRES FREE As Ordered ONE (08:16)
[2024-03-21] MEDS ORDERED: ACETAMINOPHEN 1000MG 100ML IV BAG As Ordered ONE (08:46)
[2024-03-21] MEDS: BACITRACIN OINTMENT 30GM TUBE As Ordered ONE (09:35)
[2024-03-21] MEDS: LIDOCAINE W/EPINEPHRINE 1% 20ML VIAL As Ordered ONE (09:40)
[2024-03-21] MEDS ORDERED: TRAM50TA2 PO (10:09)
[2024-03-21 10:35] VITALS: BP 121/70; TEMP 97.3; O2SAT 99
== END 2024-03-21 10:57 | disposition home or self-care (01) ==
LOC: M SDC 06:01
PROVIDERS: ATTEND Plastic Surgery Surgery of the Hand
DX: C44.41 Basal cell carcinoma of skin of scalp and neck (principal); I25.10 Atherosclerotic heart disease of native coronary artery without angina pectoris; I10 Essential (primary) hypertension; Z95.5 Presence of coronary angioplasty implant and graft; E78.00 Pure hypercholesterolemia, unspecified; Z95.1 Presence of aortocoronary bypass graft; Z79.02 Long term (current) use of antithrombotics/antiplatelets; Z79.899 Other long term (current) drug therapy; Z85.46 Personal history of malignant neoplasm of prostate; K21.9 Gastro-esophageal reflux disease without esophagitis; Z87.19 Personal history of other diseases of the digestive system; Z90.79 Acquired absence of other genital organ(s); Z90.49 Acquired absence of other specified parts of digestive tract
CPT/HCPCS: 14020; 88305; 88331; J0131; J0690; J1100; J2250; J2405; J3010

== ENCOUNTER 2024-12-23 07:17 | Day surgery (SDC) | payer MEDICARE, BC ==
[~2024-12-23] VITALS: Ht 172.7 cm; Wt 80.3 kg
[~2024-12-23 07:17] MED LIST changes: -ROSU5TAB40 PO; +ROSU5TAB49 PO; +TRAM50TA2 PO
[2024-12-23 08:34] VITALS: TEMP 97.4
[2024-12-23 08:51] VITALS: BP 116/67; O2SAT 98
== END 2024-12-23 09:13 | disposition home or self-care (01) ==
LOC: M OPP 07:17
PROVIDERS: ATTEND Internal Medicine Gastroenterology
DX: D12.2 Benign neoplasm of ascending colon (principal); K57.30 Diverticulosis of large intestine without perforation or abscess without bleeding; K57.32 Diverticulitis of large intestine without perforation or abscess without bleeding; K64.8 Other hemorrhoids; Z86.0100 Personal history of colon polyps, unspecified; Z95.5 Presence of coronary angioplasty implant and graft; Z79.899 Other long term (current) drug therapy; Z95.1 Presence of aortocoronary bypass graft; Z87.891 Personal history of nicotine dependence